=== PATIENT | male | born 1960 | race Caucasian/White ===

== ENCOUNTER 2016-11-26 18:01 | Inpatient (IN) | payer MEDICAID ==
[~2016-11-26] VITALS: Ht 172.7 cm; Wt 79.8 kg
[2016-11-26] MEDS ORDERED: PIPERACILLIN/TAZ 3.375G PREMIX 50 ML IV ONE (18:15)
[2016-11-26] MEDS ORDERED: VANCOMYCIN 1 G PREMIX 200 ML IV ONE (18:15)
[2016-11-26] MEDS ORDERED: SODIUM CHLORIDE 0.9% 1000ML BAG (SEPSIS BOLUS) IV ONE (18:15)
[2016-11-26 18:51] LABS: CHLORIDE 104 mEq/L (98-107); HEMATOCRIT. 35.6 % (42.0-52.0); HEMOGLOBIN. 12.3 g/dL (14.0-18.0); MEAN CORPUSCULAR VOLUME 83.7 fL (80.0-94.0); MEAN PLATELET VOLUME 7.8 fl (7.4-10.4); PLATELET 315 x1000/uL (130-400); RED BLOOD CELL COUNT 4.25 mill/uL (4.7-6.1); RED CELL DISTRIBUTION WIDTH 13.1 % (11.6-14.6)
[2016-11-26 18:52] LABS: INR 1.1; PROTHROMBIN TIME 11.3 sec
[2016-11-26 18:59] LABS: CARBON DIOXIDE 25 mEq/L (21-32)
[2016-11-26 19:21] LABS: PLATELET ESTIMATE NORMAL
[2016-11-26 21:54] LABS: CLARITY URINE CLEAR (CLEAR); COLOR URINE DARK YELLOW (YELLOW); GLUCOSE URINE NEGATIVE (NEGATIVE); KETONES URINE TRACE (NEGATIVE); LEUKOCYTE ESTERASE URINE NEGATIVE (NEGATIVE); NITRITE URINE NEGATIVE (NEGATIVE); OCCULT BLOOD URINE NEGATIVE (NEGATIVE); PH URINE 5.5 (4.5-8.0); PROTEIN URINE 2+ (NEGATIVE); SPECIFIC GRAVITY URINE 1.037 (1.005-1.030)
[2016-11-26 22:00] VITALS: BP 108/70
[2016-11-26] MEDS ORDERED: ONDANSETRON HCL 4MG/2ML VIAL IV STA (22:08)
[2016-11-26] MEDS ORDERED: MORPHINE SULFATE 4 MG/ML CPJ (NOT FOR IM USE) IV STA (22:08)
[2016-11-26 22:56] VITALS: BP 111/72
[2016-11-27] MEDS ORDERED: NAPR-681 PO (03:05)
[2016-11-27] MEDS ORDERED: DOXY100C2 PO (03:05)
[2016-11-27 04:00] VITALS: BP 114/82
[2016-11-27 06:36] LABS: CHLORIDE 105 mEq/L (98-107)
[2016-11-27 06:44] LABS: CARBON DIOXIDE 23 mEq/L (21-32)
[2016-11-27] MEDS: ACETAMINOPHEN 325MG TABLET PO PRN (06:53)
[2016-11-27 07:05] LABS: BASOPHILS % 0.3 % (0.0-2.0); EOSINOPHILS % 1.3 % (0.0-5.0); HEMATOCRIT. 31.3 % (42.0-52.0); HEMOGLOBIN. 10.7 g/dL (14.0-18.0); LYMPHOCYTES % 8.2 % (20.0-50.0); MEAN CORPUSCULAR HEMOGLOBIN 28.5 pg (28.0-32.0); MEAN CORPUSCULAR VOLUME 83.7 fL (80.0-94.0); MONOCYTES % 7.9 % (2.0-8.0); NEUTROPHILS % 82.3 % (40.0-76.0); PLATELET 291 x1000/uL (130-400); RED BLOOD CELL COUNT 3.74 mill/uL (4.7-6.1); RED CELL DISTRIBUTION WIDTH 13.1 % (11.6-14.6)
[2016-11-27 08:00] VITALS: BP 99/62
[2016-11-27] MEDS ORDERED: VANCOMYCIN 1 G PREMIX 200 ML IV SCH (08:00)
[2016-11-27] MEDS: NAPROXEN 250MG TABLET PO SCH ×2 (08:19→17:50)
[2016-11-27] MEDS ORDERED: VANCOMYCIN 500 MG PREMIX 100 ML IV SCH (11:00)
[2016-11-27 20:00] VITALS: BP 99/52
[2016-11-27] MEDS: CEFTRIAXONE 1 G PREMIX 50 ML IV SCH (22:07)
[2016-11-28] VITALS: BP 112/75
[2016-11-28] MEDS: IBUPROFEN 600MG TABLET PO PRN ×2 (00:19→08:56)
[2016-11-28 04:00] VITALS: BP 100/66
[2016-11-28 06:41] LABS: BASOPHILS % 0.5 % (0.0-2.0); EOSINOPHILS % 3.3 % (0.0-5.0); HEMATOCRIT. 33.7 % (42.0-52.0); HEMOGLOBIN. 11.4 g/dL (14.0-18.0); LYMPHOCYTES % 11.3 % (20.0-50.0); MEAN CORPUSCULAR HEMOGLOBIN 28.5 pg (28.0-32.0); MEAN CORPUSCULAR VOLUME 84.1 fL (80.0-94.0); MEAN PLATELET VOLUME 7.9 fl (7.4-10.4); MONOCYTES % 9.2 % (2.0-8.0); NEUTROPHILS % 75.7 % (40.0-76.0); PLATELET 311 x1000/uL (130-400); RED CELL DISTRIBUTION WIDTH 13.2 % (11.6-14.6)
[2016-11-28 07:40] LABS: CARBON DIOXIDE 22 mEq/L (21-32); CHLORIDE 108 mEq/L (98-107)
[2016-11-28 08:00] VITALS: BP 99/62
[2016-11-28] MEDS: VANCOMYCIN 1500MG in DEXTROSE 5% WATER 250ML IV SCH ×2 (08:54→20:11)
[2016-11-28 20:00] VITALS: BP 106/74
[2016-11-28] MEDS: CEFTRIAXONE 1 G PREMIX 50 ML IV SCH (20:11)
[2016-11-28 23:05] LABS: CLARITY URINE CLOUDY (CLEAR); COLOR URINE YELLOW (YELLOW); GLUCOSE URINE NEGATIVE (NEGATIVE); KETONES URINE NEGATIVE (NEGATIVE); LEUKOCYTE ESTERASE URINE NEGATIVE (NEGATIVE); NITRITE URINE NEGATIVE (NEGATIVE); OCCULT BLOOD URINE NEGATIVE (NEGATIVE); PH URINE 8.5 (4.5-8.0); PROTEIN URINE NEGATIVE (NEGATIVE); SPECIFIC GRAVITY URINE 1.015 (1.005-1.030); UROBILINOGEN URINE 0.2 E.U./dL (0.2-1.0)
[2016-11-28 23:48] LABS: *AMPHETAMINES SCREEN URINE NEGATIVE (NEGATIVE); *BARBITURATES SCREEN URINE NEGATIVE (NEGATIVE); *BENZODIAZEPINES SCREEN URINE NEGATIVE (NEGATIVE); *COCAINE SCREEN URINE NEGATIVE (NEGATIVE); CANNABINOID URINE SCREEN PRESUMTIVE POSITIVE (NEGATIVE); METHADONE URINE SCREEN NEGATIVE (NEGATIVE); OPIATES URINE SCREEN NEGATIVE (NEGATIVE); PHENCYCLIDINE URINE SCREEN NEGATIVE (NEGATIVE)
[2016-11-29] VITALS: BP 103/59
[2016-11-29] MEDS: ACETAMINOPHEN 325MG TABLET PO PRN ×2 (02:12→20:42)
[2016-11-29] MEDS: IBUPROFEN 600MG TABLET PO PRN ×2 (02:14→20:42)
[2016-11-29 04:00] VITALS: BP 94/60
[2016-11-29 08:00] VITALS: BP 82/60
[2016-11-29] MEDS: VANCOMYCIN 1500MG in DEXTROSE 5% WATER 250ML IV SCH (09:11)
[2016-11-29 12:00] VITALS: BP 111/71
[2016-11-29 15:32] LABS: BASOPHILS % 0.5 % (0.0-2.0); EOSINOPHILS % 4.5 % (0.0-5.0); HEMATOCRIT. 37.9 % (42.0-52.0); HEMOGLOBIN. 12.9 g/dL (14.0-18.0); MEAN CORPUSCULAR HEMOGLOBIN 28.1 pg (28.0-32.0); MEAN PLATELET VOLUME 7.8 fl (7.4-10.4); MONOCYTES % 6.1 % (2.0-8.0); NEUTROPHILS % 76.9 % (40.0-76.0); PLATELET 402 x1000/uL (130-400); RED BLOOD CELL COUNT 4.57 mill/uL (4.7-6.1); RED CELL DISTRIBUTION WIDTH 13.2 % (11.6-14.6)
[2016-11-29 15:49] LABS: CARBON DIOXIDE 27 mEq/L (21-32); CHLORIDE 103 mEq/L (98-107)
[2016-11-29 16:00] VITALS: BP 126/78
[2016-11-29] MEDS: VANCOMYCIN 1 G PREMIX 200 ML IV SCH ×2 (18:20→21:01)
[2016-11-29 20:00] VITALS: BP 105/69
[2016-11-29] MEDS: CEFTRIAXONE 1 G PREMIX 50 ML IV SCH (20:43)
[2016-11-30] VITALS (8 sets, daily range): BP systolic 100–137; BP diastolic 63–85
[2016-11-30] MEDS: ACETAMINOPHEN 325MG TABLET PO PRN ×2 (05:44→17:02)
[2016-11-30] MEDS: VANCOMYCIN 1 G PREMIX 200 ML IV SCH (05:44)
[2016-11-30] MEDS: IBUPROFEN 600MG TABLET PO PRN ×2 (05:45→21:21)
[2016-11-30 12:56] LABS: CARBON DIOXIDE 28 mEq/L (21-32); CHLORIDE 102 mEq/L (98-107); VANCOMYCIN TROUGH 16.2 ug/mL (5.0-10.0)
[2016-11-30] MEDS ORDERED: CEPH-569 PO (13:27)
[2016-11-30 15:13] LABS: BASOPHILS % 0.6 % (0.0-2.0); EOSINOPHILS % 4.5 % (0.0-5.0); HEMATOCRIT. 37.3 % (42.0-52.0); HEMOGLOBIN. 12.9 g/dL (14.0-18.0); LYMPHOCYTES % 8.9 % (20.0-50.0); MEAN CORPUSCULAR HEMOGLOBIN 28.7 pg (28.0-32.0); MEAN CORPUSCULAR VOLUME 82.6 fL (80.0-94.0); MEAN PLATELET VOLUME 7.7 fl (7.4-10.4); MONOCYTES % 5.5 % (2.0-8.0); NEUTROPHILS % 80.5 % (40.0-76.0); PLATELET 445 x1000/uL (130-400); RED BLOOD CELL COUNT 4.51 mill/uL (4.7-6.1); RED CELL DISTRIBUTION WIDTH 13.2 % (11.6-14.6)
[2016-11-30 15:38] LABS: CARBON DIOXIDE 27 mEq/L (21-32); CHLORIDE 104 mEq/L (98-107)
== END 2016-11-30 21:30 | disposition home or self-care (01) | DRG 383 ==
LOC: ER 18:13 → 6EST 19:43 → EDBEDREQ 19:46 → ENRESERV 20:12
PROVIDERS: ADMIT Family Medicine; ATTEND Family Medicine
DX: L03.115 Cellulitis of right lower limb (principal); E43 Unspecified severe protein-calorie malnutrition; E11.9 Type 2 diabetes mellitus without complications; D64.9 Anemia, unspecified; Z60.2 Problems related to living alone; Z68.26 Body mass index [BMI] 26.0-26.9, adult; V09.9XXA Pedestrian injured in unspecified transport accident, initial encounter; Y93.89 Activity, other specified; Y92.89 Other specified places as the place of occurrence of the external cause; Y99.8 Other external cause status
CPT/HCPCS: 36415; 71010; 73560; 80048; 80053; 80202; 80305; 81001; 85025; 85610; 85730; 86850; 86900; 87040; 87086; 93005; 93971; 96365; 96366; 96367; 99285; C1893; J0696; J2543; J3370; J7030; J7040; J7042; J7050; J7060

== ENCOUNTER 2016-12-07 09:31 | Emergency (ER) | payer MEDICAID ==
[~2016-12-07] VITALS: Ht 180.3 cm; Wt 91.0 kg
[~2016-12-07 09:31] MED LIST: CEPH-569 PO; DOXY100C2 PO; NAPR-681 PO
[2016-12-07] MEDS ORDERED: LIDOCAINE HCL 1% 20ML VIAL (Pyxis) INJ MC ONE (10:45)
[2016-12-07] MEDS ORDERED: TETANUS, DIPHTHERIA, PERTUSSIS VAC/PF 0.5ML (>7YR OLD) IM ONE (10:45)
[2016-12-07] MEDS ORDERED: ACETAMINOPHEN WITH CODEINE 300/30MG TABLET PO ONE (10:45)
[2016-12-07 11:03] VITALS: BP 171/81
== END 2016-12-07 12:24 | disposition home or self-care (01) ==
LOC: ER 10:32
DX: L02.415 Cutaneous abscess of right lower limb (principal)
CPT/HCPCS: 10060; 73590; 90471; 90715; 99284; J3490; X7700; Z7610

== ENCOUNTER 2016-12-09 09:30 | Emergency (ER) | payer MEDICAID ==
[~2016-12-09] VITALS: Ht 175.3 cm; Wt 79.0 kg
[2016-12-09] MEDS ORDERED: KETOROLAC 30MG/ML VIAL IM ONE (15:15)
[2016-12-09] MEDS ORDERED: LIDOCAINE HCL/EPINEPHRINE 1%-EPI 1:100,000 30 ML VIAL INFIL ONE (15:15)
[2016-12-09] MEDS ORDERED: LIDOCAINE HCL 1%/EPI 1:200,000 30 ML VIAL IJ NR (15:45)
[2016-12-09 17:19] VITALS: BP 110/57
== END 2016-12-09 17:23 | disposition home or self-care (01) ==
LOC: ER 12:15
DX: L02.818 Cutaneous abscess of other sites (principal)
CPT/HCPCS: 10060; 96372; 99283; J1885

== ENCOUNTER 2017-11-17 08:13 | Emergency (ER) | payer MEDICAID ==
[~2017-11-17] VITALS: Ht 172.7 cm; Wt 81.9 kg
[2017-11-17 08:29] VITALS: BP 140/88
== END 2017-11-17 09:56 | disposition left against medical advice (07) ==
LOC: ER 08:50
DX: Z00.8 Encounter for other general examination (principal); Z53.21 Procedure and treatment not carried out due to patient leaving prior to being seen by health care provider